=== PATIENT | male | born 1990 | race Hispanic/Latino ===

== ENCOUNTER 2018-10-19 08:37 | Inpatient (IN) | payer OTHER ==
[~2018-10-19] VITALS: Ht 154.9 cm; Wt 47.0 kg
[2018-10-19] MEDS ORDERED: ONDANSETRON HCL 4 MG/2 ML VIAL ONE (09:30)
[2018-10-19] MEDS ORDERED: SODIUM CHLORIDE 0.9% 1000ML 1,000 ML IV ONE (09:30)
[2018-10-19 09:43] LABS: BASOPHILS % (AUTO) 0.2 % (0.0-5.0); EOSINOPHILS % (AUTO) 0.2 % (0.0-8.0); HEMATOCRIT 33.1 % (42-54); LYMPHOCYTES % (AUTO) 33.9 % (21.0-51.0); MEAN CORPUSCULAR HEMOGLOBIN 34.4 pg (27.0-33.0); MEAN CORPUSCULAR HGB CONC 33.8 g/dL (32.0-36.0); MEAN CORPUSCULAR VOLUME 101.7 fL (79-99); MONOCYTES % (AUTO) 6.9 % (3.0-13.0); NEUTROPHILS % (AUTO) 58.8 % (40.0-77.0); NUCLEATED RED BLOOD CELLS 0.1 % (0.0-0.19); PLATELET COUNT (AUTO) 56 K/uL (130-400); RED BLOOD CELL COUNT(AUTO) 3.26 MIL/uL (4.50-6.20); RED CELL DISTRIBUTION WIDTH 15.2 % (11.0-15.5); WHITE BLOOD COUNT (AUTO) 4.9 K/uL (4.8-10.8)
[2018-10-19 09:48] LABS: PARTIAL THROMBOPLASTIN TIME 26.7 SEC (26.3-35.5); POTASSIUM 4.6 mmol/L (3.5-5.1); PROTHROMBIN TIME 10.5 SEC (9.6-11.6)
[2018-10-19 09:57] LABS: ALBUMIN 3.4 g/dL (3.5-5.0); BILIRUBIN,DIRECT 0.1 mg/dL (0.0-0.3); BILIRUBIN,TOTAL 0.5 mg/dL (0.2-1.0); TOTAL PROTEIN, SERUM 7.9 g/dL (6.0-8.3)
[2018-10-19] MEDS ORDERED: CEFTRIAXONE SODIUM 2 GM VIAL ONE (10:37)
[2018-10-19] MEDS ORDERED: SODIUM CHLORIDE 0.9% 1000ML 1,000 ML IV SCH (13:58)
[2018-10-19] MEDS ORDERED: ACETAMINOPHEN 325 MG TAB PO PRN (14:00)
[2018-10-19] MEDS ORDERED: HYDRALAZINE HCL 20 MG/ML VIAL IV PRN (14:00)
[2018-10-19] MEDS ORDERED: LACTULOSE 20 GM/30 ML UDCUP PO PRN (14:00)
[2018-10-19] MEDS ORDERED: ACETAMINOPHEN ELIXIR 650 MG/20.3 ML UDCUP ONE (14:04)
[2018-10-19 14:22] LABS: MAGNESIUM 1.9 mg/dL (1.80-2.40); PHOSPHORUS 2.6 mg/dL (2.5-4.9)
[2018-10-19 14:29] LABS: HEMOGLOBIN A1C 5.2 % (4.0-6.0)
[2018-10-19 14:33] LABS: CRP QUANTITATIVE 2.2 mg/L (0.00-9.0)
[2018-10-19 15:16] LABS: APPEARANCE,URINE Clear (CLEAR); BILIRUBIN,URINE Negative (NEGATIVE); COLOR,URINE Yellow (YELLOW); GLUCOSE, URINE (UA) Negative (NEGATIVE); KETONES,URINE Trace mg/dL (NEGATIVE); LEUKOCYTE ESTERASE ,URINE Negative (NEGATIVE); NITRATE,URINE Negative (NEGATIVE); OCCULT BLOOD,URINE Moderate (NEGATIVE); PH,URINE 6.5 (5.0-8.0); PROTEIN,URINE POS 2+ mg/dL (NEGATIVE)
[2018-10-19 15:23] LABS: BACTERIA,URINE Few /HPF (None Seen); MUCUS,URINE Few LPF (None Seen); SQUAMOUS EPITHELIAL CELL,UR 0-2 /HPF (0-2)
[2018-10-19 15:35] VITALS: BP 118/45
[2018-10-19] MEDS ORDERED: LAMO50TA3 PO (16:12)
[2018-10-19] MEDS ORDERED: VALP250C3 PO ×2 (16:12)
[2018-10-19] MEDS ORDERED: LAMO25TA9 PO (16:12)
[2018-10-19 20:08] VITALS: BP 142/91
[2018-10-19] MEDS: FAMOTIDINE/PF 20 MG/2 ML VIAL IV SCH (21:01)
[2018-10-19] MEDS: CEFTRIAXONE SODIUM 1 GM IV SCH (21:01)
[2018-10-19] MEDS: ACETAMINOPHEN 325 MG TAB PO PRN (21:03)
[2018-10-19 23:21] VITALS: BP 128/79
[2018-10-19] MEDS: DEXTROSE 5 % AND 0.9 % NACL 1,000 ML IV SCH (23:58)
[2018-10-19] MEDS: AMOXICILLIN 500 MG CAPSULE PO SCH (23:59)
[2018-10-20] MEDS: ACETAMINOPHEN 325 MG TAB PO PRN (03:25)
[2018-10-20 04:01] VITALS: BP 123/73
[2018-10-20] MEDS: AMOXICILLIN 500 MG CAPSULE PO SCH ×3 (06:13→22:15)
[2018-10-20] MEDS: DEXTROSE 5 % AND 0.9 % NACL 1,000 ML IV SCH ×2 (06:15→14:28)
[2018-10-20 07:25] VITALS: BP 109/67
[2018-10-20] MEDS: VALPROATE SOD 250 MG/5 ML (PO) PO SCH ×3 (10:41→20:16)
[2018-10-20] MEDS: LAMOTRIGINE 25 MG TAB PO SCH (10:43)
[2018-10-20] MEDS: ENOXAPARIN SODIUM 30 MG/0.3 ML SQ SCH (10:44)
[2018-10-20] MEDS: FAMOTIDINE/PF 20 MG/2 ML VIAL IV SCH ×2 (10:45→20:16)
[2018-10-20] MEDS: CEFTRIAXONE SODIUM 1 GM IV SCH ×2 (10:45→20:17)
[2018-10-20 11:00] VITALS: BP 129/82
--- NOTE | 2018-10-20 12:20 | NUR ---
DCP CM met with pt and mother discussed dc plans. Pt is assist with ADL's prior to admission, lives at home w/mother. Denies any equipments/services. Feels safe to go back home, mother able to assist with transportation and needs as necessary. DC plan to home once stable. CM to cont to follow up. Addendum: 10/20/18 at 1221 by BASIA ESPARZA LVN CM Amended: Links added.
[2018-10-20 16:00] VITALS: BP 120/67
[2018-10-20 20:00] VITALS: BP 140/91
--- NOTE | 2018-10-20 20:22 | NUR ---
SHOWER PT'S MOTHER ASSISTING WITH PT'S SHOWER AT THIS TIME. ADVISED MOTHER TO CALL FOR ASSISTANCE. PT DISCONNECTED FROM THE IV PUMP AT THIS TIME- WILL RE-CONNECT ONCE SHOWER IS COMPLETE. [employer] IS CHANGING THE BED [facility].
[2018-10-20] MEDS ORDERED: LAMOTRIGINE 25 MG TAB PO SCH (21:00)
[2018-10-21] VITALS: BP 123/77
[2018-10-21 04:00] VITALS: BP 122/81
[2018-10-21] MEDS: AMOXICILLIN 500 MG CAPSULE PO SCH ×2 (06:00→13:59)
[2018-10-21] MEDS: DEXTROSE 5 % AND 0.9 % NACL 1,000 ML IV SCH ×2 (06:15→06:41)
[2018-10-21 06:45] LABS: HEMATOCRIT 26.3 % (42-54); MEAN CORPUSCULAR HGB CONC 33.8 g/dL (32.0-36.0); MEAN CORPUSCULAR VOLUME 100.9 fL (79-99); NUCLEATED RED BLOOD CELLS 0.2 % (0.0-0.19); PLATELET COUNT (AUTO) 54 K/uL (130-400); RED BLOOD CELL COUNT(AUTO) 2.61 MIL/uL (4.50-6.20); WHITE BLOOD COUNT (AUTO) 3.1 K/uL (4.8-10.8)
[2018-10-21 07:03] LABS: CREATININE 0.9 mg/dL (0.5-1.5); POTASSIUM 3.2 mmol/L (3.5-5.1)
[2018-10-21 08:00] VITALS: BP 131/86
[2018-10-21] MEDS: ENOXAPARIN SODIUM 30 MG/0.3 ML SQ SCH (09:00)
[2018-10-21] MEDS: FAMOTIDINE/PF 20 MG/2 ML VIAL IV SCH (09:17)
[2018-10-21] MEDS: CEFTRIAXONE SODIUM 1 GM IV SCH (09:17)
[2018-10-21] MEDS: VALPROATE SOD 250 MG/5 ML (PO) PO SCH ×2 (09:17→13:59)
[2018-10-21] MEDS: LAMOTRIGINE 25 MG TAB PO SCH (09:17)
[2018-10-21 12:00] VITALS: BP 131/91
[2018-10-21] MEDS ORDERED: POTASSIUM CHLORIDE 10% ELIXIR 20 MEQ/15 ML UDCUP PO SCH (16:15)
[2018-10-21] MEDS ORDERED: AMOX250C4 PO (16:34)
[2018-10-21 16:53] VITALS: BP 121/77
[2018-10-21] MEDS ORDERED: POTASSIUM CHLORIDE 20 MEQ ERTAB PO SCH (19:00)
== END 2018-10-21 18:30 | disposition home or self-care (01) | DRG 158 ==
LOC: EDH 08:37 → EDHIP 08:38 → OBSVTOIN 08:38 → 3DH 15:35
PROVIDERS: ADMIT Internal Medicine; ATTEND Internal Medicine
DX: K08.89 Other specified disorders of teeth and supporting structures (principal); G91.9 Hydrocephalus, unspecified; G40.909 Epilepsy, unspecified, not intractable, without status epilepticus; H54.3 Unqualified visual loss, both eyes; K80.20 Calculus of gallbladder without cholecystitis without obstruction; M95.2 Other acquired deformity of head; G46.3 Brain stem stroke syndrome; Z82.49 Family history of ischemic heart disease and other diseases of the circulatory system
CPT/HCPCS: 36415; 70450; 74176; 76705; 80048; 80076; 81001; 82550; 83036; 83605; 83690; 83735; 84100; 84145; 84702; 85025; 85027; 85610; 85730; 86140; 87040; 93005; G0378; J0696; J1650; J2405; J3490; J7030; J7042

== ENCOUNTER 2023-12-25 03:51 | Emergency (ER) | payer SELFPAY ==
[~2023-12-25] VITALS: Ht 172.7 cm; Wt 46.7 kg
[~2023-12-25 03:51] MED LIST: AMOX250C4 PO; LAMO25TA9 PO; LAMO50TA3 PO; VALP250C3 PO
[2023-12-25 04:27] LABS: BASOPHILS # (AUTO) 0.02 K/uL (0.00-0.20); BASOPHILS % (AUTO) 0.2 % (0.0-5.0); EOSINOPHILS # (AUTO) 0.03 K/uL (0.00-0.70); EOSINOPHILS % (AUTO) 0.3 % (0.0-8.0); IMMATURE GRANULOCYTE ABSOLUTE 0.04 K/uL (0-1); LYMPHOCYTES # (AUTO) 0.7 K/uL (1.0-4.8); LYMPHOCYTES % (AUTO) 6.7 % (21.0-51.0); MEAN CORPUSCULAR HEMOGLOBIN 33.3 pg (27.0-33.0); MEAN CORPUSCULAR HGB CONC 31.6 g/dL (32.0-36.0); MEAN CORPUSCULAR VOLUME 105.4 fL (79-99); MONOCYTES # (AUTO) 0.6 K/uL (0.1-1.0); MONOCYTES % (AUTO) 5.3 % (3.0-13.0); NEUTROPHILS # (AUTO) 9.6 K/uL (1.8-7.7); NEUTROPHILS % (AUTO) 87.1 % (40.0-77.0); PLATELET COUNT (AUTO) 135 K/uL (130-400); RED BLOOD CELL COUNT(AUTO) 2.94 MIL/uL (4.50-6.20); RED CELL DISTRIBUTION WIDTH 15.3 % (11.0-15.5)
[2023-12-25 04:35] LABS: CREATININE 1.6 mg/dL (0.5-1.3); POTASSIUM 5.2 mmol/L (3.5-5.1)
[2023-12-25 04:40] LABS: RAPID GROUP A STREP negative (NEGATIVE)
[2023-12-25 04:48] LABS: SARS-CoV-2, RNA, NAAT NEGATIVE SARS CoV-2 (NEGATIVE)
[2023-12-25 04:51] LABS: INFLUENZA TYPE A Negative For Type A (NEGATIVE); INFLUENZA TYPE B Negative For Type B (NEGATIVE)
[2023-12-25] MEDS: 0.9%NACL 1000ML 1,000 ML IV ONE (04:54)
[2023-12-25] MEDS: ondanSETRON 4MG INJ IVP ONE (04:54)
[2023-12-25] MEDS ORDERED: ONDA-243 PO (06:52)
[2023-12-25] MEDS ORDERED: CARB15DR61 OTIC (06:52)
[2023-12-25] MEDS ORDERED: AZIT250T9 PO (06:52)
[2023-12-25 07:00] VITALS: BP 124/79; PULSE 81; RESP 18; TEMP 97.5; O2SAT 100
== END 2023-12-25 07:03 | disposition home or self-care (01) ==
LOC: EDH 03:51
DX: R11.2 Nausea with vomiting, unspecified (principal); K52.9 Noninfective gastroenteritis and colitis, unspecified; E86.0 Dehydration; G91.9 Hydrocephalus, unspecified; I10 Essential (primary) hypertension; N17.9 Acute kidney failure, unspecified; H66.92 Otitis media, unspecified, left ear; Z79.899 Other long term (current) drug therapy; Z20.822 Contact with and (suspected) exposure to COVID-19
CPT/HCPCS: 99284; 96374; 96361; 71045; 87635; 80048; 85025; 87880; 87804 ×2; 83605; 36415; J7030; J2405